=== PATIENT | female | born 1990 | race Caucasian/White ===

== ENCOUNTER 2016-05-11 00:12 | Emergency (ER) | payer OTHER ==
--- NOTE | 2016-05-11 01:22 | PD ---
HPI Chief Complaint Contractions Date Seen: May 11, 2016 Time Seen: 01:18 Travel History International Travel<30 Days: No Contact w/Intl Traveler<30Days: No Known Affected Area: No History of Present Illness HPI 25-year-old female who is at 39 weeks and 2 days comes in tonight for contractions for the past 5 hours. She states that they essentially gone on for the past 2-3 days but she noticed that they were a little bit more frequent in the past 5 or 6 hours. Denies vaginal bleeding she states to contraction pain is mild. Patient was seen in the office earlier this week and she was 2 cm Para: 0 : 1 History Past Medical History Narrative Medical Asthma Past Surgical History Surgical History: No Previous Surgery Family History Family History: Negative Social History Alcohol Use: No Tobacco Use: No Substance Abuse: No Review of Systems Except as stated in HPI: all other systems reviewed are Neg Physical Exam Narrative GENERAL: Well-nourished, well-developed patient. SKIN: Warm and dry. HEAD: Normocephalic and atraumatic. EYES: No scleral icterus. No injection or drainage. ENT: No nasal drainage noted. Mucous membranes pink. Airway patent. NECK: Supple, trachea midline. No JVD. CARDIOVASCULAR: Regular rate and rhythm without murmurs, gallops, or rubs. RESPIRATORY: Breath sounds equal bilaterally. No accessory muscle use. BREASTS: Bilateral exam showed no masses , no retractions, no nipple discharge. ABDOMEN/GI: Abdomen soft, non-tender, bowel sounds present, no rebound, no guarding Gravid to [-] weeks size Fundal Height: [-40] GENITOURINARY: External Genitalia: intact and normal in appearance BUS glands: [-Normal] Cervix: [-Posterior] Dilatation: [-1] Effacement: 50 Station: -3 Presentation: Vertex Membranes: Intact Uterine Contractions: Every 5 minutes FHT's: Category: [1-] Baseline: 140 Reactive: Moderate Variability: Moderate Decels: Absent EXTREMITIES: No cyanosis or edema. BACK: Nontender without obvious deformity. No CVA tenderness. NEUROLOGICAL: Awake and alert. Motor and sensory grossly within normal limits. Five out of 5 muscle strength in all muscle groups. Normal speech. Data Data Vital Signs Reviewed: Yes Orders Urinalysis - C+S If Indicated (05/11/16 01:08) MDM Plan 25-year-old female who is here with false labor. She has had no cervical change since her last examination. Patient is experiencing these contractions for several days. Cervix is 1 cm and very posterior. Patient has appointment to her provider noted tomorrow Diagnosis Diagnosis: Primary Impression: False labor after 37 weeks of gestation without delivery Additional Impression: 39 weeks gestation of Disposition: 01 DISCHARGE HOME Karen Tejeda MD May 11, 2016 01:22
[2016-05-11] MEDS ORDERED: CALNTAB (22:24)
[2016-05-11] MEDS ORDERED: FERR1TAB36 PO (22:25)
[2016-05-11] MEDS ORDERED: ZANTTAB9 PO (22:26)
== END 2016-05-11 01:28 | disposition home or self-care (01) ==
LOC: HOBED 00:12
DX: O47.1 False labor at or after 37 completed weeks of gestation (principal); Z3A.39 39 weeks gestation of pregnancy
CPT/HCPCS: 59025

== ENCOUNTER 2016-05-11 21:10 | Inpatient (IN) | payer OTHER ==
[~2016-05-11] VITALS: Ht 157.5 cm; Wt 68.9 kg
[2016-05-11] MEDS ORDERED: CALNTAB (22:24)
[2016-05-11] MEDS ORDERED: FERR1TAB36 PO (22:25)
[2016-05-11] MEDS ORDERED: ZANTTAB9 PO (22:26)
[2016-05-11 22:28] LABS: AUTOMATED NEUTROPHIL # 6.6 TH/MM3 (1.8-7.7); BASOPHIL % 0.4 % (0.0-2.0); EOSINOPHIL # 0.1 TH/MM3 (0-0.4); EOSINOPHIL % 0.9 % (0.0-4.0); HEMATOCRIT 33.4 % (35.0-46.0); HEMO FLAGS DIFF FINAL; LYMPH % 18.1 % (9.0-44.0); LYMPHOCYTE # 1.7 TH/MM3 (1.0-4.8); MEAN CELL VOLUME 92.1 FL (80.0-100.0); MEAN CORPUSCULAR HEMOGLOBIN 32.6 PG (27.0-34.0); MEAN CORPUSCULAR HGB CONC 35.4 % (32.0-36.0); MONO % 8.1 % (0.0-8.0); NEUT % 72.5 % (16.0-70.0); PLATELET COUNT 238 TH/MM3 (150-450); RED BLOOD COUNT 3.62 MIL/MM3 (4.00-5.30); RED CELL DISTRIBUTION WIDTH 13.5 % (11.6-17.2); WHITE BLOOD COUNT 9.1 TH/MM3 (4.0-11.0)
[2016-05-11] MEDS ORDERED: LACTATED RINGER'S 1000 ML BOLUS IV PRN (22:30)
[2016-05-11] MEDS ORDERED: NS 1000 ML IV PRN (22:30)
[2016-05-11] MEDS ORDERED: LIDOCAINE HCL 1% 50 ML VIAL I-DERMAL PRN (22:30)
[2016-05-11] MEDS ORDERED: MINERAL OIL 10 ML VIAL TOP PRN (22:30)
[2016-05-11] MEDS ORDERED: NS 500 ML BOLUS IV PRN (22:30)
[2016-05-11] MEDS ORDERED: OXYTOCIN 30 UNITS 500ML PREMIX IV ONE (22:30)
[2016-05-11] MEDS ORDERED: NS 1000 ML XX PRN (22:30)
[2016-05-11] MEDS ORDERED: CITRIC ACID-SODIUM CITRATE LIQ 30 ML UDC PO SCH (22:30)
[2016-05-11] MEDS ORDERED: DINOPROSTONE 10 MG INSERT - REMOVE AT 0600 VAGINAL SCH (22:30)
[2016-05-11] MEDS ORDERED: LIDOCAINE HCL 1% 50 ML VIAL INFIL PRN (22:30)
[2016-05-11 22:34] LABS: BACTERIA, URINE OCC /hpf; BLOOD, URINE SMALL (NEG); COMMENT (UR) CULT NOT INDICATED; CULTURE IF INDICATED CULT NOT INDICATED; GLUCOSE,URINE NEG (NEG); KETONE, URINE NEG (NEG); MUCUS URINE FEW /lpf (OCC); NITRITE,URINE NEG (NEG); PH, URINE 6.5 (5.0-8.5); SQUAMOUS EPITHELIAL CELL URINE 3 /hpf (0-5); URINE COLOR YELLOW (YELLW/STRAW)
[2016-05-11] MEDS: LACTATED RINGER'S 1000 ML IV SCH (22:50)
[2016-05-11 23:45] VITALS: PULSE 89
[2016-05-11 23:48] VITALS: BP 128/88; PULSE 88
[2016-05-11 23:49] VITALS: RESP 18; TEMP 97.5
[2016-05-12] VITALS (125 sets, daily range): BP systolic 87–139; BP diastolic 42–118; PULSE 78–131; RESP 16–20; TEMP 98–98.8; O2SAT 99–100
--- NOTE | 2016-05-12 08:06 | HHI.HP ---
HPI Chief Complaint iol Date Seen: May 12, 2016 Travel History International Travel<30 Days: No Contact w/Intl Traveler<30Days: No Known Affected Area: No History of Present Illness HPI Pt is a 25 yo G1 with iup at 40 wk here for iol for term , elective. + FM, neg vb/lof. + contractions. Para: 0 History Past Medical History Narrative Medical asthma, varicella non immune, abn 1 hr Obstetric History Obstetric History G1, abn 1 hr Past Surgical History Narrative Surgical wisdom teeth removal Family History Family History: Negative Social History Alcohol Use: No Tobacco Use: No Substance Abuse: No Allergies-Medications (Allergen,Severity, Reaction): Coded Allergies: Aspirin (Verified Allergy, Severe, family history, 05/11/16) Zithromax (Verified Allergy, Severe, rash, 05/11/16) Home Meds Reported Medications Ranitidine (Zantac 75)75 Mg Tab75 Mg PO BID Ref 0 Take 30 to 60 minutes before eating food or drinking beverages that cause heartburn. 05/11/16 Ferrous Sulfate (Iron)325 Mg Hqr066 Mg PO BIDPC Ref 0 Take after a meal. 05/11/16 Vitamin (Calna)1 Tab Tab 05/11/16 Review of Systems General / Constitutional: No: Fever, Weight Gain, Chills, Other Eyes: No: Diploplia, Blurred Vision, Visual changes, Pain, Photophobia HENT: No: Headaches, Vertigo, Lightheadedness Cardiovascular: No: Irregular Rhythm, Chest Pain or Discomfort, Palpitations, Tachycardia, Syncope, Varicosities, Edema, Cyanosis Respiratory: No: Cough, Short of Breath, Other Gastrointestinal: No: Nausea, Vomiting, Diarrhea Genitourinary: No: Decreased Urinary Output, Oliguria Musculoskeletal: No: Limited ROM, Weakness, Cramping, Edema, Pain Skin: No Rash, No Itching, No Dryness, No Lumps, No Change in Pigmentation, No Change in Nails, No Alopecia, No Lesions Neurologic: No: Weakness, Dizziness, Syncope, Focal Abnormalities, Coordination Problem, Headache, Slurred Speech, Seizures Psychiatric: No: Depression, Suicidal Ideations, Homicidal Ideation Endocrine: No: Heat Intolerance, Cold Intolerance, Polydipsia, Polyuria, Other Physical Exam Vital Signs Date Time Temp Pulse Resp B/P Pulse Ox O2 Delivery O2 Flow Rate FiO2 05/12/16 07:25 95 05/12/16 07:21 98.1 18 05/12/16 07:21 96 128/81 05/12/16 07:20 97 05/12/16 07:15 98 05/12/16 05:00 98.3 18 05/12/16 04:58 93 120/68 05/12/16 04:55 87 05/12/16 04:50 90 05/12/16 04:45 86 05/11/16 23:49 97.5 18 05/11/16 23:48 88 128/88 05/11/16 23:45 89 Narrative GENERAL: Well-nourished, well-developed patient. SKIN: Warm and dry. HEAD: Normocephalic and atraumatic. EYES: No scleral icterus. No injection or drainage. ENT: No nasal drainage noted. Mucous membranes pink. Airway patent. NECK: Supple, trachea midline. No JVD. CARDIOVASCULAR: Regular rate and rhythm without murmurs, gallops, or rubs. RESPIRATORY: Breath sounds equal bilaterally. No accessory muscle use. ABDOMEN/GI: Abdomen soft, non-tender, bowel sounds present, no rebound, no guarding Gravid to 40 weeks size GENITOURINARY: External Genitalia: intact and normal in appearance BUS glands: [-] cervix 3/50/-2, mid Presentation: ceph Membranes: [intact , arom clear Uterine Contractions:q 2-3min FHT's: Category: [-] Baseline: [-] Reactive: [-] Variability: [-] Decels: [-] EXTREMITIES: No cyanosis or edema. BACK: Nontender without obvious deformity. No CVA tenderness. NEUROLOGICAL: Awake and alert. Motor and sensory grossly within normal limits. Five out of 5 muscle strength in all muscle groups. Normal speech. Data Data Vital Signs Reviewed: Yes Orders Admit To Inpatient (05/11/16 ) ^ Labor Induction (05/11/16 22:17) ^ Vaginal Insert (05/11/16 22:17) ^ Vaginal Lavage (05/11/16 22:17) ^ Heart (05/11/16 22:17) Admit To Inpatient (05/11/16 ) Code Status (05/11/16 22:17) Vital Signs (Adult) .Per protocol (05/11/16 22:17) Activity Oob Ad Dyan (05/11/16 22:17) ^ Heart (05/11/16:17) ^ Amnioinfusion (05/11/16 22:) Urinary Catheter Management .ONCE (05/11/16 22:17) Diet Liquid (05/12/16 Breakfast) Complete Blood Count With Diff (05/11/16 22:17) Hold Clot (05/11/16 22:17) Abo/Rh Blood Type (05/11/16 22:17) Urinalysis - C+S If Indicated (05/11/16 22:17) Resp Oxygen Non Rebreathe Mask (05/11/16 ) ^ Epidural / Intrathecal Infus (05/11/16 22:17) Lactated Ringer's 1000 Ml Inj (Lr 1000 M (05/11/16 22:30) Lactated Ringer's 1000 Ml Inj (Lr 1000 M (05/11/16 22:30) Sodium Chlorid 0.9% 500 Ml Inj (Ns 500 M (05/11/16 22:30) Sodium Chlor 0.9% 1000 Ml Inj (Ns 1000 M (05/11/16 22:30) Lidocaine 1% Inj (50 Ml) (Xylocaine 1% I (05/11/16 22:30) Citric Acid-Sodium Citrate Liq (Bicitra (05/11/16 22:30) Fentanyl Inj (Fentanyl Inj) (05/11/16 22:30) Fentanyl Inj (Fentanyl Inj) (05/11/16 22:30) Oxytocin 30 Units-500ml Premix (Pitocin (05/11/16 22:30) Lidocaine 1% Inj (50 Ml) (Xylocaine 1% I (05/11/16 22:30) Light Mineral Oil (Muri-Lube Oil) (05/11/16 22:30) Dinoprostone Vag Insert (Cervidil Vag In (05/11/16 22:30) Sodium Chlor 0.9% 1000 Ml Inj (Ns 1000 M (05/11/16 22:30) Labs Laboratory Tests Test 05/11/16 22:00 White Blood Count 9.1 Red Blood Count 3.62 Hemoglobin 11.8 Hematocrit 33.4 Mean Corpuscular Volume 92.1 Mean Corpuscular Hemoglobin 32.6 Mean Corpuscular Hemoglobin 35.4 Concent Red Cell Distribution Width 13.5 Platelet Count 238 Mean Platelet Volume 8.9 Neutrophils (%) (Auto) 72.5 Lymphocytes (%) (Auto) 18.1 Monocytes (%) (Auto) 8.1 Eosinophils (%) (Auto) 0.9 Basophils (%) (Auto) 0.4 Neutrophils # (Auto) 6.6 Lymphocytes # (Auto) 1.7 Monocytes # (Auto) 0.7 Eosinophils # (Auto) 0.1 Basophils # (Auto) 0.0 CBC Comment DIFF FINAL Differential Comment Urine Color YELLOW Urine Turbidity CLEAR Urine pH 6.5 Urine Specific [place] 1.016 Urine Protein NEG Urine Glucose (UA) NEG Urine Ketones NEG Urine Occult Blood SMALL Urine Nitrite NEG Urine Bilirubin NEG Urine Urobilinogen 2.0 Urine Leukocyte Esterase MOD Urine RBC 1 Urine WBC 3 Urine Squamous Epithelial 3 Cells Urine Bacteria OCC Urine Mucus FEW Microscopic Urinalysis Comment CULT NOT INDICATED Blood Type A POSITIVE Blood Bank Comment Band and Hold Assessment/Plan Problem List: (1) Indication for care in labor and delivery, antepartum Assessment and Plan 25 yo G1 with iup at 40 wk here for iol 1) IOL - s/p cervidil overnight, arom and iupc placed, pitocin and epidural as needed. 2) GBS negative 3) fetus- ceph 7.5-8lb Jody Whitfield MD May 12, 2016 08:05 Jody Whitfield MD May 12, 2016 08:05
[2016-05-12] MEDS: LACTATED RINGER'S 1000 ML IV SCH (09:45)
[2016-05-12] MEDS ORDERED: OXYTOCIN 30 UNITS-500ML PREMIX 500 ML IV SCH (10:00)
[2016-05-12] MEDS ORDERED: fentaNYL 2MCG-BUPIV 0.125% INJ 100 ML ONE (14:18)
[2016-05-12] MEDS ORDERED: ePHEDrine/NS 25 MG/5 ML SYR IV PRN (15:45)
[2016-05-12] MEDS ORDERED: fentaNYL 2MCG-BUPIV 0.125% 100 ML EPIDURAL SCH (15:45)
[2016-05-12] MEDS ORDERED: NO SYSTEM NARCOTICS XX PRN (15:45)
[2016-05-12] MEDS ORDERED: DO NOT ADMINISTER ANTICOAGULANTS XX PRN (15:45)
[2016-05-13] VITALS (24 sets, daily range): BP systolic 92–146; BP diastolic 35–123; PULSE 97–179; RESP 16–18; TEMP 97.9–98.2
--- NOTE | 2016-05-13 01:14 | PD.OB.DELI ---
Delivery Date: May 13, 2016 Anesthesia: Epidural Episiotomy: Midline Vaginal Delivery: Normal Presentation: Occiput anterior Nuchal Cord: None Delayed cord clamping (45 sec): Yes : Female One Minute : 9 Weight: 6/12 Infant Care: Suctioned, Spontaneous crying, Responded to stimulation Placenta: Spontaneous delivery, Intact, Uterus explored +, 3 vessel cord Laceration: Episiotomy, Perineal laceration, 2 deg Repair: Vicryl running Additional Information Irina delivery of Kelli. Deep vaginal tears repaired with 3-0 vicryl. bilateral labial lacerations repaired 5-0 vicryl. Nice repair EBL 350cc Angie Stevens MD May 13, 2016 01:14
[2016-05-13] MEDS ORDERED: oxyCODONE/ACETAMINOPHEN 5 MG/325 MG TAB PO PRN ×2 (01:15)
[2016-05-13] MEDS ORDERED: ALUMINUM/MAGNESIUM/SIMETH 30 ML CUP PO PRN (01:15)
[2016-05-13] MEDS ORDERED: DOCUSATE SODIUM 50 MG/SENNA 8.6 MG TAB PO PRN (01:15)
[2016-05-13] MEDS ORDERED: OXYTOCIN 30 UNITS-500ML PREMIX 500 ML IV ONE (01:15)
[2016-05-13] MEDS ORDERED: ONDANSETRON ODT 4 MG TAB PO PRN (01:15)
[2016-05-13] MEDS ORDERED: SODIUM CHLORIDE 0.9% FLUSH 5 ML FLUSH IV PRN (01:15)
[2016-05-13] MEDS ORDERED: BENZOCAINE 20% TOPICAL SPRAY 60 ML CAN TOPICAL PRN (01:15)
[2016-05-13] MEDS ORDERED: IBUPROFEN 600 MG TAB PO PRN (01:15)
[2016-05-13] MEDS ORDERED: ZOLPIDEM TARTRATE 5 MG TAB PO PRN (01:15)
[2016-05-13] MEDS ORDERED: ONDANSETRON HCL 4 MG/2 ML VIAL ONE (02:16)
[2016-05-13] MEDS ORDERED: ONDANSETRON HCL 4 MG/2 ML VIAL IV PUSH PRN (02:45)
[2016-05-13] MEDS ORDERED: HYDROmorphone HCL PF 1 MG/ML VIAL IV PRN (02:45)
[2016-05-13] MEDS ORDERED: SODIUM CHLORIDE 0.9% FLUSH 5 ML FLUSH IV SCH (09:00)
--- NOTE | 2016-05-13 10:48 | HHI.OB ---
Subjective Post Day: 1 Remarks Doing well, baby is doing well Pain is well controlled. Steve is still in Objective Vitals/I&O Vital Signs Date Time Temp Pulse Resp B/P Pulse Ox O2 Delivery O2 Flow Rate FiO2 05/13/16 07:30 97.9 05/13/16 07:30 98 16 113/60 05/13/16 05:30 118 120/70 05/13/16 05:20 107 115/70 05/13/16 05:11 121 98/47 05/13/16 04:50 142 05/13/16 04:50 108/71 05/13/16 04:45 18 05/13/16 04:40 146 146/123 05/13/16 04:20 102/83 05/13/16 04:16 126 93/57 05/13/16 04:00 100/66 05/13/16 04:00 106 05/13/16 03:13 18 05/13/16 03:00 105 105/56 05/13/16 02:45 105 105/59 05/13/16 02:38 104/67 05/13/16 02:38 99 05/13/16 02:16 179 92/71 05/13/16 02:15 18 05/13/16 02:00 121 109/77 05/13/16 01:56 18 05/13/16 01:45 18 05/13/16 01:45 116 113/63 05/13/16 01:43 98.2 05/13/16 01:40 97 05/13/16 01:40 99/76 05/13/16 01:30 18 05/13/16 01:16 95/35 05/13/16 01:16 169 05/12/16 22:40 104 05/12/16 22:30 123/71 05/12/16 22:10 98 05/12/16 22:00 120/64 05/12/16 21:45 18 05/12/16 21:40 102 05/12/16 21:30 110/62 05/12/16 21:10 18 05/12/16 21:10 105 05/12/16 21:05 105 05/12/16 21:01 99 120/56 05/12/16 21:00 108 05/12/16 20:40 97 05/12/16 20:35 94 05/12/16 20:30 96 134/86 05/12/16 20:30 94 05/12/16 20:15 18 05/12/16 20:10 102 05/12/16 20:05 109 05/12/16 20:00 104 131/78 05/12/16 20:00 98.0 05/12/16 20:00 109 05/12/16 19:40 97 99 05/12/16 19:35 100 99 05/12/16 19:33 20 05/12/16 19:31 104 129/76 05/12/16 19:30 97 05/12/16 19:30 99 05/12/16 19:10 95 100 05/12/16 19:05 96 100 05/12/16 19:00 96 137/118 05/12/16 19:00 100 05/12/16 18:44 100 117/83 05/12/16 18:40 97 05/12/16 18:35 117 05/12/16 18:30 105 113/71 05/12/16 18:30 113 05/12/16 18:25 103 05/12/16 18:20 99 05/12/16 18:15 102 05/12/16 18:10 92 05/12/16 18:07 98.2 05/12/16 18:07 18 05/12/16 18:05 103 05/12/16 18:00 96 120/73 05/12/16 18:00 92 05/12/16 17:55 109 05/12/16 17:50 104 05/12/16 17:45 110 05/12/16 17:40 96 05/12/16 17:35 95 05/12/16 17:30 89 111/58 05/12/16 17:30 93 05/12/16 17:25 98 05/12/16 17:20 86 05/12/16 17:15 98 05/12/16 17:14 18 05/12/16 17:10 91 05/12/16 17:05 96 05/12/16 17:00 95 112/64 05/12/16 17:00 97 05/12/16 16:55 85 05/12/16 16:50 98 05/12/16 16:45 89 05/12/16 16:40 89 05/12/16 16:35 97 05/12/16 16:30 86 118/65 05/12/16 16:30 89 05/12/16 16:25 99 05/12/16 16:20 96 05/12/16 16:15 107 05/12/16 16:10 131 05/12/16 16:05 91 05/12/16 16:00 88 122/75 05/12/16 16:00 90 05/12/16 15:55 91 05/12/16 15:50 95 05/12/16 15:45 98.8 05/12/16 15:45 92 05/12/16 15:44 16 05/12/16 15:44 92 113/68 05/12/16 15:40 107 05/12/16 15:35 103 106/63 05/12/16 15:35 100 05/12/16 15:30 97 114/57 05/12/16 15:30 96 05/12/16 15:25 92 05/12/16 15:25 98 113/60 05/12/16 15:20 90 101/61 05/12/16 15:20 91 05/12/16 15:15 102 103/56 05/12/16 15:15 116 05/12/16 15:11 16 05/12/16 15:10 117 90/61 05/12/16 15:10 92 05/12/16 15:06 115 87/42 05/12/16 15:05 78 05/12/16 15:00 82 114/63 05/12/16 15:00 81 05/12/16 14:55 82 05/12/16 14:55 93 115/64 05/12/16 14:50 89 116/70 05/12/16 14:50 86 05/12/16 14:48 18 05/12/16 14:45 102 104/76 05/12/16 14:45 104 05/12/16 14:42 18 05/12/16 14:41 120/72 05/12/16 14:41 95 05/12/16 14:40 104 05/12/16 14:37 120 05/12/16 14:37 121/71 05/12/16 14:35 89 05/12/16 14:35 133/80 05/12/16 14:35 91 05/12/16 14:31 134/70 05/12/16 14:31 94 05/12/16 14:30 94 05/12/16 12:07 81 132/71 05/12/16 12:00 16 05/12/16 11:28 94 18 139/80 05/12/16 11:00 18 05/12/16 10:55 92 125/73 Objective Remarks GENERAL: Well-nourished, well-developed patient. CARDIOVASCULAR: Regular rate and rhythm without murmurs, gallops, or rubs. RESPIRATORY: Breath sounds equal bilaterally. No accessory muscle use. ABDOMEN/GI: Abdomen soft, non-tender. Fundus: Firm, non-tender at umbilicus. GENITOURINARY: Light to moderate bleeding. EXTREMITIES: No cyanosis or edema, non-tender, without signs of DVT. Medications and IVs Current Medications Medications (Trade) Dose Ordered Sig/Keshia Route Start Time Stop Time Status Last Admin (NS Flush) 2 ml BID IV 05/13/16 09:00 (NS Flush) 2 ml UNSCH PRN IV 05/13/16 01:15 (Tylenol) 650 mg Q4H PRN PO 05/13/16 01:15 (Motrin) 600 mg Q6H PRN PO 05/13/16 01:15 (Percocet 5-325 Mg) 1 tab Q4H PRN PO 05/13/16 01:15 (Percocet 5-325 Mg) 2 tab Q4H PRN PO 05/13/16 01:15 (Americaine 20% Top Spr) 1 spray Q4H PRN TOPICAL 05/13/16 01:15 (Tucks Pads) 1 applic QID PRN TOPICAL 05/13/16 01:15 (Whitney-Colace) 2 tab Q12H PRN PO 05/13/16 01:15 (Ambien) 5 mg HS PRN PO 05/13/16 01:15 (M-M-R Ii Inj) 0.5 ml ONCE ONCE SQ 05/13/16 16:00 05/13/16 16:01 (Boostrix Inj) 0.5 ml ONCE ONCE IM 05/13/16 16:00 05/13/16 16:01 (Mag-Al Plus Susp Liq) 15 ml Q8H PRN PO 05/13/16 01:15 (Zofran Odt) 4 mg Q6H PRN PO 05/13/16 01:15 (Zofran Inj) 4 mg Q4H PRN IV PUSH 05/13/16 02:45 (Dilaudid Pf Inj) 1 mg Q1H PRN IV 05/13/16 02:45 Assessment/Plan Problem List: (1) Indication for care in labor and delivery, antepartum Assessment and Plan PPD#1 S/P Vacuum delivery Tachycardia... several episodes of significant tachycardia,. will check TSH and CBC Routine care and remove ewing as the swelling is good Angie Stevens MD May 13, 2016 10:48
[2016-05-13] MEDS: WITCH HAZEL 50%/GLYCERIN 12.5% 40 PAD JAR TOPICAL PRN (11:33)
[2016-05-13] MEDS: ACETAMINOPHEN 325 MG TAB PO PRN ×2 (11:33→22:04)
[2016-05-13 11:47] LABS: HEMATOCRIT 21.2 % (35.0-46.0); MEAN CELL VOLUME 92.8 FL (80.0-100.0); MEAN CORPUSCULAR HGB CONC 34.5 % (32.0-36.0); PLATELET COUNT 209 TH/MM3 (150-450); RED BLOOD COUNT 2.28 MIL/MM3 (4.00-5.30); RED CELL DISTRIBUTION WIDTH 13.3 % (11.6-17.2); REVIEW FLAG FINAL; WHITE BLOOD COUNT 19.3 TH/MM3 (4.0-11.0)
--- NOTE | 2016-05-13 13:34 | HHI.PR ---
Objective Vital Signs Date Time Temp Pulse Resp B/P Pulse Ox O2 Delivery O2 Flow Rate FiO2 05/13/16 07:30 97.9 05/13/16 07:30 98 16 113/60 05/13/16 05:30 118 120/70 05/13/16 05:20 107 115/70 05/13/16 05:11 121 98/47 05/13/16 04:50 142 05/13/16 04:50 108/71 05/13/16 04:45 18 05/13/16 04:40 146 146/123 05/13/16 04:20 102/83 05/13/16 04:16 126 93/57 05/13/16 04:00 100/66 05/13/16 04:00 106 05/13/16 03:13 18 05/13/16 03:00 105 105/56 05/13/16 02:45 105 105/59 05/13/16 02:38 104/67 05/13/16 02:38 99 05/13/16 02:16 179 92/71 05/13/16 02:15 18 05/13/16 02:00 121 109/77 05/13/16 01:56 18 05/13/16 01:45 18 05/13/16 01:45 116 113/63 05/13/16 01:43 98.2 05/13/16 01:40 97 05/13/16 01:40 99/76 05/13/16 01:30 18 05/13/16 01:16 95/35 05/13/16 01:16 169 05/12/16 22:40 104 05/12/16 22:30 123/71 05/12/16 22:10 98 05/12/16 22:00 120/64 05/12/16 21:45 18 05/12/16 21:40 102 05/12/16 21:30 110/62 05/12/16 21:10 18 05/12/16 21:10 105 05/12/16 21:05 105 05/12/16 21:01 99 120/56 05/12/16 21:00 108 05/12/16 20:40 97 05/12/16 20:35 94 05/12/16 20:30 96 134/86 05/12/16 20:30 94 3/10/17 20:15 18 05/12/16 20:10 102 05/12/16 20:05 109 05/12/16 20:00 104 131/78 05/12/16 20:00 98.0 05/12/16 20:00 109 05/12/16 19:40 97 99 05/12/16 19:35 100 99 05/12/16 19:33 20 05/12/16 19:31 104 129/76 05/12/16 19:30 97 05/12/16 19:30 99 05/12/16 19:10 95 100 05/12/16 19:05 96 100 05/12/16 19:00 96 137/118 05/12/16 19:00 100 05/12/16 18:44 100 117/83 05/12/16 18:40 97 05/12/16 18:35 117 05/12/16 18:30 105 113/71 05/12/16 18:30 113 05/12/16 18:25 103 05/12/16 18:20 99 05/12/16 18:15 102 05/12/16 18:10 92 05/12/16 18:07 98.2 05/12/16 18:07 18 05/12/16 18:05 103 05/12/16 18:00 96 120/73 05/12/16 18:00 92 05/12/16 17:55 109 05/12/16 17:50 104 05/12/16 17:45 110 05/12/16 17:40 96 05/12/16 17:35 95 05/12/16 17:30 89 111/58 05/12/16 17:30 93 05/12/16 17:25 98 05/12/16 17:20 86 05/12/16 17:15 98 05/12/16 17:14 18 05/12/16 17:10 91 05/12/16 17:05 96 05/12/16 17:00 95 112/64 05/12/16 17:00 97 05/12/16 16:55 85 05/12/16 16:50 98 05/12/16 16:45 89 05/12/16 16:40 89 05/12/16 16:35 97 05/12/16 16:30 86 118/65 05/12/16 16:30 89 05/12/16 16:25 99 05/12/16 16:20 96 05/12/16 16:15 107 05/12/16 16:10 131 05/12/16 16:05 91 05/12/16 16:00 88 122/75 05/12/16 16:00 90 05/12/16 15:55 91 05/12/16 15:50 95 05/12/16 15:45 98.8 05/12/16 15:45 92 05/12/16 15:44 16 05/12/16 15:44 92 113/68 05/12/16 15:40 107 05/12/16 15:35 103 106/63 05/12/16 15:35 100 05/12/16 15:30 97 114/57 05/12/16 15:30 96 05/12/16 15:25 92 05/12/16 15:25 98 113/60 05/12/16 15:20 90 101/61 05/12/16 15:20 91 05/12/16 15:15 102 103/56 05/12/16 15:15 116 05/12/16 15:11 16 05/12/16 15:10 117 90/61 05/12/16 15:10 92 05/12/16 15:06 115 87/42 05/12/16 15:05 78 05/12/16 15:00 82 114/63 05/12/16 15:00 81 05/12/16 14:55 82 05/12/16 14:55 93 115/64 05/12/16 14:50 89 116/70 05/12/16 14:50 86 05/12/16 14:48 18 05/12/16 14:45 102 104/76 05/12/16 14:45 104 05/12/16 14:42 18 05/12/16 14:41 120/72 05/12/16 14:41 95 05/12/16 14:40 104 05/12/16 14:37 120 05/12/16 14:37 121/71 05/12/16 14:35 89 05/12/16 14:35 133/80 05/12/16 14:35 91 05/12/16 14:31 134/70 05/12/16 14:31 94 05/12/16 14:30 94 Result Diagram: 05/13/16 1135 Assessment and Plan Assessment and Plan Anemia and tachycardia...h/h is 7.3/21.2 TSH is wnl. Angie Stevens MD May 13, 2016 13:34
[2016-05-13] MEDS ORDERED: MEASLES, MUMPS, RUBELLA VACCINE 0.5 ML VIAL SQ ONE (16:00)
[2016-05-13] MEDS ORDERED: DIPHTH/TETANUS/ACEL PERTUSSIS (BOOSTER) 0.5 ML VIAL/PFS IM ONE (16:00)
[2016-05-14] MEDS: ACETAMINOPHEN 325 MG TAB PO PRN ×4 (04:39→20:51)
[2016-05-14 08:15] VITALS: BP 102/64; PULSE 94; RESP 18; TEMP 97.8
[2016-05-14] MEDS ORDERED: IBUP-232 PO (14:57)
[2016-05-14] MEDS ORDERED: OXYC1TAB63 PO (14:57)
--- NOTE | 2016-05-14 15:00 | HHI.DCPOC ---
Discharge Care Plan Diagnosis: (1) Vaginal delivery Report Symptoms to Your Doctor -Temperate above 100.5 degrees -Redness, of incision or excessive or foul smelling drainage -Unusual pain or calf pain -Increased vaginal bleeding -Painful or difficulty urinating -Feelings of extreme sadness or anxiety after 2 weeks Goals to Promote Your Health * To prevent worsening of your condition and complications * To maintain your health at the optimal level Directions to Meet Your Goals Take your medications as prescribed Follow your dietary instruction Follow activity as directed Ensure plenty of rest for recovery Drink fluids for hydration Keep your appointments as scheduled Take your immunizations and boosters as scheduled If your symptoms worsen call your PCP, if no PCP go to Urgent Care Center or Emergency Room Smoking is Dangerous to Your Health. Avoid second hand smoke Call the 24-hour crisis hotline for domestic abuse at Angie Stevens MD May 14, 2016 14:59
--- NOTE | 2016-05-14 15:23 | HHI.OB ---
Subjective Post Day: 2 Remarks Doing well, No dizziness SOB or chest pain ready to go home. Bleeding is small. Objective Vitals/I&O Vital Signs Date Time Temp Pulse Resp B/P Pulse Ox O2 Delivery O2 Flow Rate FiO2 05/14/16 08:15 97.8 94 18 102/64 05/13/16 16:25 100 18 122/75 Objective Remarks GENERAL: Well-nourished, well-developed patient. CARDIOVASCULAR: Regular rate and rhythm without murmurs, gallops, or rubs. RESPIRATORY: Breath sounds equal bilaterally. No accessory muscle use. ABDOMEN/GI: Abdomen soft, non-tender. Fundus: Firm, non-tender at umbilicus. GENITOURINARY: Light to moderate bleeding. EXTREMITIES: No cyanosis or edema, non-tender, without signs of DVT. Medications and IVs Current Medications Medications (Trade) Dose Ordered Sig/Keshia Route Start Time Stop Time Status Last Admin (NS Flush) 2 ml BID IV 05/13/16 09:00 05/14/16 09:20 (NS Flush) 2 ml UNSCH PRN IV 05/13/16 01:15 (Tylenol) 650 mg Q4H PRN PO 05/13/16 01:15 05/14/16 09:20 (Motrin) 600 mg Q6H PRN PO 05/13/16 01:15 (Percocet 5-325 Mg) 1 tab Q4H PRN PO 05/13/16 01:15 (Percocet 5-325 Mg) 2 tab Q4H PRN PO 05/13/16 01:15 (Americaine 20% Top Spr) 1 spray Q4H PRN TOPICAL 05/13/16 01:15 05/13/16 11:33 (Tucks Pads) 1 applic QID PRN TOPICAL 05/13/16 01:15 05/13/16 11:33 (Whitney-Colace) 2 tab Q12H PRN PO 05/13/16 01:15 05/13/16 22:04 (Ambien) 5 mg HS PRN PO 05/13/16 01:15 (Mag-Al Plus Susp Liq) 15 ml Q8H PRN PO 05/13/16 01:15 (Zofran Odt) 4 mg Q6H PRN PO 05/13/16 01:15 (Zofran Inj) 4 mg Q4H PRN IV PUSH 05/13/16 02:45 (Dilaudid Pf Inj) 1 mg Q1H PRN IV 05/13/16 02:45 Assessment/Plan Problem List: (1) Indication for care in labor and delivery, antepartum Assessment and Plan PPD#2 S/P Vacuum delivery Tachycardia... resolved Routine care. Angie Stevens MD May 14, 2016 15:23
[2016-05-14 15:35] LABS: MEAN CELL VOLUME 94.1 FL (80.0-100.0); MEAN CORPUSCULAR HEMOGLOBIN 31.5 PG (27.0-34.0); MEAN CORPUSCULAR HGB CONC 33.5 % (32.0-36.0); PLATELET COUNT 206 TH/MM3 (150-450); RED BLOOD COUNT 1.88 MIL/MM3 (4.00-5.30); RED CELL DISTRIBUTION WIDTH 13.3 % (11.6-17.2); WHITE BLOOD COUNT 14.2 TH/MM3 (4.0-11.0)
[2016-05-14 15:58] LABS: REVIEW FLAG FINAL
[2016-05-14 15:59] LABS: HEMATOCRIT 17.7 % (35.0-46.0)
[2016-05-14 16:20] VITALS: BP 108/72; PULSE 115; RESP 18; TEMP 98.1
[2016-05-14] MEDS: IRON SUCROSE INJ 200 MG in SODIUM CHLORIDE 0.9% INJ 100 ML IV SCH (17:01)
[2016-05-14 19:23] VITALS: BP 127/80; PULSE 111; RESP 18; TEMP 98.6
[2016-05-15] MEDS: ACETAMINOPHEN 325 MG TAB PO PRN ×2 (03:35→07:31)
[2016-05-15] MEDS: WITCH HAZEL 50%/GLYCERIN 12.5% 40 PAD JAR TOPICAL PRN (03:35)
[2016-05-15 07:29] VITALS: TEMP 97.9
[2016-05-15 08:00] VITALS: BP 107/66; PULSE 86; RESP 16; TEMP 97.6; O2SAT 97
[2016-05-15 08:17] LABS: BASOPHIL % 0.4 % (0.0-2.0); EOSINOPHIL # 0.1 TH/MM3 (0-0.4); LYMPH % 17.3 % (9.0-44.0); LYMPHOCYTE # 2.3 TH/MM3 (1.0-4.8); MEAN CELL VOLUME 93.9 FL (80.0-100.0); MEAN CORPUSCULAR HEMOGLOBIN 32.1 PG (27.0-34.0); MEAN CORPUSCULAR HGB CONC 34.3 % (32.0-36.0); MONO % 5.8 % (0.0-8.0); NEUT % 75.5 % (16.0-70.0); PLATELET COUNT 201 TH/MM3 (150-450); RED CELL DISTRIBUTION WIDTH 13.4 % (11.6-17.2); WHITE BLOOD COUNT 13.2 TH/MM3 (4.0-11.0)
[2016-05-15 08:18] LABS: HEMO FLAGS AUTO DIFF
--- NOTE | 2016-05-15 08:21 | HHI.OB ---
Subjective Post Day: 2 Remarks PPD#2, Anemia,H+H pending; Stable Objective Vitals/I&O Vital Signs Date Time Temp Pulse Resp B/P Pulse Ox O2 Delivery O2 Flow Rate FiO2 05/15/16 07:29 97.9 05/14/16 19:23 127/80 05/14/16 19:23 98.6 111 18 05/14/16 16:20 98.1 115 18 108/72 Objective Remarks GENERAL: Well-nourished, well-developed patient. CARDIOVASCULAR: Regular rate and rhythm without murmurs, gallops, or rubs. RESPIRATORY: Breath sounds equal bilaterally. No accessory muscle use. ABDOMEN/GI: Abdomen soft, non-tender. Fundus: Firm, non-tender at umbilicus. GENITOURINARY: Light to moderate bleeding. EXTREMITIES: No cyanosis or edema, non-tender, without signs of DVT. Medications and IVs Current Medications Medications (Trade) Dose Ordered Sig/Keshia Route Start Time Stop Time Status Last Admin (NS Flush) 2 ml BID IV 05/13/16 09:00 05/14/16 09:20 (NS Flush) 2 ml UNSCH PRN IV 05/13/16 01:15 (Tylenol) 650 mg Q4H PRN PO 05/13/16 01:15 05/15/16 07:31 (Motrin) 600 mg Q6H PRN PO 05/13/16 01:15 (Percocet 5-325 Mg) 1 tab Q4H PRN PO 05/13/16 01:15 (Percocet 5-325 Mg) 2 tab Q4H PRN PO 05/13/16 01:15 (Americaine 20% Top Spr) 1 spray Q4H PRN TOPICAL 05/13/16 01:15 05/13/16 11:33 (Tucks Pads) 1 applic QID PRN TOPICAL 05/13/16 01:15 05/15/16 03:35 (Whitney-Colace) 2 tab Q12H PRN PO 05/13/16 01:15 05/13/16 22:04 (Ambien) 5 mg HS PRN PO 05/13/16 01:15 (Mag-Al Plus Susp Liq) 15 ml Q8H PRN PO 05/13/16 01:15 (Zofran Odt) 4 mg Q6H PRN PO 05/13/16 01:15 (Zofran Inj) 4 mg Q4H PRN IV PUSH 05/13/16 02:45 Hydromorphone HCl 1 mg 1 mg Q1H PRN IV 05/13/16 02:45 (Venofer Inj/NS Inj) 110 ml @ 110 mls/hr DAILY IV 05/14/16 17:00 05/16/16 09:59 05/14/16 17:01 Assessment/Plan Problem List: (1) Indication for care in labor and delivery, antepartum Assessment and Plan PPD#2 Hbg 6.4, Not orthostatic. Plan discharge home on iron,RTO 2 weeks Huang Santillan MD May 15, 2016 08:21
[2016-05-15 08:23] LABS: HEMATOCRIT 18.8 % (35.0-46.0)
[2016-05-15] MEDS: IRON SUCROSE INJ 200 MG in SODIUM CHLORIDE 0.9% INJ 100 ML IV SCH (08:25)
[2016-05-15 09:16] LABS: BANDS 4 % (0-6); METAMYELOCYTES 1 % (0-1); NEUTROPHIL # MANUAL DIFF 9.2 TH/MM3 (1.8-7.7); PLATELET ESTIMATE SMEAR NORMAL (NORMAL); PLATELET MORPHOLOGY NORMAL (NORMAL); POLYS (SEG NEUTROPHILS) 65 % (16-70); SCAN/DIFF FINAL DIFF MANUAL; WBC DIFF SAMPLE 100
== END 2016-05-15 10:36 | disposition home or self-care (01) | DRG 775 ==
LOC: H2EB 21:10 → H1EA 05-13 06:23
PROVIDERS: ADMIT Obstetrics & Gynecology; ATTEND Obstetrics & Gynecology
PROC: 3E0P7GC Introduction of Other Therapeutic Substance into Female Reproductive, Via Natural or Artificial Opening (ICD-10-PCS; 2016-05-12)
PROC: 10907ZC Drainage of Amniotic Fluid, Therapeutic from Products of Conception, Via Natural or Artificial Opening (ICD-10-PCS; 2016-05-12)
PROC: 10H07YZ Insertion of Other Device into Products of Conception, Via Natural or Artificial Opening (ICD-10-PCS; 2016-05-12)
PROC: 3E0S3CZ (ICD-10-PCS; 2016-05-12)
PROC: 00HU33Z Insertion of Infusion Device into Spinal Canal, Percutaneous Approach (ICD-10-PCS; 2016-05-12)
PROC: 10E0XZZ Delivery of Products of Conception, External Approach (ICD-10-PCS; principal; 2016-05-13)
PROC: 0KQM0ZZ Repair Perineum Muscle, Open Approach (ICD-10-PCS; 2016-05-13)
PROC: 0W8NXZZ Division of Female Perineum, External Approach (ICD-10-PCS; 2016-05-13)
DX: O75.89 Other specified complications of labor and delivery (principal); R00.0 Tachycardia, unspecified; O99.02 Anemia complicating childbirth; D64.9 Anemia, unspecified; O70.1 Second degree perineal laceration during delivery; Z37.0 Single live birth; Z3A.40 40 weeks gestation of pregnancy
CPT/HCPCS: 81001; 84443; 85007; 85025; 85027; 86900; 86901; J1756; J2405; J2590; J7120